=== PATIENT | female | born 1955 | race Caucasian/White ===

== ENCOUNTER 2016-09-23 12:31 | Emergency (ER) | payer SELFPAY ==
[~2016-09-23] VITALS: Wt 82.0 kg
[~2016-09-23 12:31] MED LIST: AMOX500T PO; CYCL-319 PO; ESOM40CA PO; HYDR-3498 PO; IBUP-1542 PO; NAPR-260 PO; UDROBAC PO
== END 2016-09-23 19:00 | disposition left against medical advice (07) ==
LOC: E/R 12:31
DX: Z53.21 Procedure and treatment not carried out due to patient leaving prior to being seen by health care provider (principal)

== ENCOUNTER 2016-11-01 15:53 | Emergency (ER) | payer OTHER ==
[~2016-11-01] VITALS: Wt 95.0 kg
[2016-11-01] MEDS ORDERED: HYDROCODONE/APAP (5/325) TAB PO ONE (22:00)
[2016-11-01 22:01] VITALS: BP 178/89; PULSE 84; RESP 25
--- NOTE | 2016-11-01 22:38 | RADRPT ---
PROCEDURE: Right leg series CLINICAL INDICATION: Pain and swelling TECHNIQUE: AP and lateral views COMPARISON: 08/25/2013 right leg series FINDINGS: The soft tissues and osseous structures are normal. No acute fractures or dislocations are present. No radiodense foreign bodies are present . IMPRESSION: 1. No acute fractures or dislocations RPTAT: HDC .Sultana Moralez MD, Date Time Electronically viewed and signed by .Sultana Moralez MD, on 11/01/2016 22:38 .C/
--- NOTE | 2016-11-01 23:01 | RADRPT ---
PROCEDURE: US DVT. CLINICAL INDICATION: Right lower extremity pain and swelling. TECHNIQUE: Multiple longitudinal and transverse images of the right lower extremity veins were obt ained with dickinson scale and color Doppler imaging. 2D grayscale measurements with compression, color Doppler flow, and augmentation was performed. The calf veins were interrogated as well. COMPARISON: 08/25/2013 FINDINGS: The right common femoral, superficial femoral and popliteal veins are normally compressible througho ut. Color flow demonstrates normal filling of the vessel. Normal waveforms are visualized and ther e is normal response to augmentation. The calf veins are visualized and are equally unremarkable. IMPRESSION: 1. No evidence of a deep vein thrombosis involving the right lower extremity. RPTAT: HJES .Yifan Diaz MD, MD Date Time Electronically viewed and signed by .Yifan Diaz MD, on 11/01/2016 23:01 .S/
[2016-11-01] MEDS ORDERED: IBUP800T25 PO (23:20)
--- NOTE | 2016-11-01 23:20 | ERD ---
ER Documentation Chief Complaint Date/Time DATE: 11/01/16 TIME: 23:18 Chief Complaint R LOWER LEG PAIN FOR THE PAST YEAR , WORSE THE PAST WEEK. NO TRAUMA HPI This is a 61-year-old female who presents to the emergency room for right lower leg pain for 1 years duration. The patient states that is gotten worse over the past week and she denies any trauma to the area. She denies any numbness or tingling and states that she came to the ER today for evaluation. She is also denying any fevers or palpitations or shortness of breath associated with this. ROS All systems reviewed and are negative except as per history of present illness. Medications Home Meds Discontinued Reported Medications Esomeprazole Mag Trihydrate (Nexium) 40 Mg Capsule.dr, 40 MG PO 07/21/12 Discontinued Scripts Ibuprofen* (Motrin*) 600 Mg Tab, 600 MG PO Q6, #20 TAB Prov:RASHEL MARCOS PA-C 03/03/16 Hydrocodone Bit-Acetaminophen* (Pomona*) 5-325 Mg Tab, 1 TAB PO Q6 Y for PAIN, # 10 TAB Prov:RASHEL MARCOS PA-C 03/03/16 Guaifenesin-Codeine Phosphate* (Robitussin* AC) 5 Ml Syrup, 5 ML PO Q4H Y for COUGH, #4 OZ Prov:TAMAR MCBRIDE DO 04/19/15 Amoxicillin Trihydrate (Amoxicillin) 500 Mg Tablet, 500 MG PO QID, #30 TAB Prov:TAMAR MCBRIDE DO 04/19/15 Cyclobenzaprine Hcl* (Cyclobenzaprine Hcl*) 10 Mg Tablet, 10 MG PO TID, #12 TAB Prov:TAMAR MCBRIDE DO 04/19/15 Naproxen* (Naprosyn*) 500 Mg Tablet, 500 MG PO BID, #14 TAB Prov:TAMAR MCBRIDE DO 04/19/15 Allergies Allergies: Coded Allergies: No Known Allergy (Unverified , 11/01/16) PMhx/Soc History of Surgery: Yes (C-sction X3) Anesthesia Reaction: No Hx Neurological Disorder: No Hx Respiratory Disorders: No Hx Cardiac Disorders: Yes (HTN not on meds, high cholesterol) Hx Psychiatric Problems: No Hx Miscellaneous Medical Probl: Yes (arthritis) Hx Alcohol Use: No Hx Substance Use: No Hx Tobacco Use: No Smoking Status: Never smoker Physical Exam Vitals Vital Signs Date Time Temp Pulse Resp B/P Pulse Ox O2 Delivery O2 Flow Rate FiO2 11/01/16 22:01 84 25 178/89 99 Room Air 11/01/16 15:56 98.8 83 21 220/98 98 Physical Exam Const: No acute distress Head: Atraumatic Eyes: Normal Conjunctiva ENT: Normal External Ears, Nose and Mouth. Neck: Full range of motion..~ No meningismus. Resp: Clear to auscultation bilaterally Cardio: Regular rate and rhythm, no murmurs Abd: Soft, non tender, non distended. Normal bowel sounds Skin: No petechiae or rashes Back: No midline or flank tenderness Ext: No cyanosis, or edema Neur: Awake and alert Psych: Normal Mood and Affect Results 24 hrs Current Medications Medications (Trade) Dose Ordered Sig/Kelly Route PRN Reason Start Time Stop Time Status Last Admin Dose Admin Acetaminophen/ Hydrocodone Bitart (Pomona (5/325)) 1 tab ONCE ONCE PO 11/01/16 22:00 11/01/16 22:01 DC 11/01/16 22:20 Procedures/MDM Ultrasound right lower extremity: No DVT X-ray Tib/Fib 2V Interpreted by me: Bones: No fracture Joints: No dislocation Foreign body: None This 61-year-old female presents to the emergency room for evaluation of right lower extremity pain. The patient's pain is atraumatic and is chronic. This patient had an ultrasound of her right lower extremity which does not show any signs of DVT. X-ray of the tib-fib i does not show any fractures. She is neurovascularly intact in the foot. The patient will be discharged home with a prescription for Motrin Departure Diagnosis: Primary Impression: Pain of right leg Condition: Stable LIDYA CARRASCO DO Nov 01, 2016 23:20
== END 2016-11-02 00:35 | disposition home or self-care (01) ==
LOC: E/R 15:53
DX: M79.661 Pain in right lower leg (principal); I10 Essential (primary) hypertension; R40.2142 Coma scale, eyes open, spontaneous, at arrival to emergency department; R40.2252 Coma scale, best verbal response, oriented, at arrival to emergency department; R40.2362 Coma scale, best motor response, obeys commands, at arrival to emergency department
CPT/HCPCS: 73590; 93971; Z7502; Z7610